=== PATIENT | female | born 1985 | race Caucasian/White ===

== ENCOUNTER 2016-08-17 12:34 | Emergency (ER) | payer OTHER ==
[2016-08-17 12:46] VITALS: BP 125/62; PULSE 78; RESP 18; TEMP 98; O2SAT 97
--- NOTE | 2016-08-17 14:52 | EDPHY ---
H & P Time Seen by Provider: 08/17/16 13:50 HPI/ROS: CHIEF COMPLAINT: Right ear pain HISTORY OF PRESENT ILLNESS: 31-year-old female presents emergency department complaining of right ear redness and tenderness. Patient had an ear piercing 6 months ago, for the last 3 months she has had increasing redness, intermittent drainage of serosanguineous fluid and tenderness. Patient denies fevers or chills, no pain inside of her ear, no difficulty hearing. Patient is not immunocompromised. Smoking Status: Never smoked Physical Exam: GEN: Awake, alert, oriented, no acute distress RESP: nl resp effort MSK: Normal appearing SKIN: ear piercing through antihelix of right ear with small area of surrounding mild erythema, swelling and tenderness, no fluctuance Constitutional: Initial Vital Signs Temperature (C) 36.6 C 08/17/16 12:45 Heart Rate 78 08/17/16 12:45 Respiratory Rate 18 08/17/16 12:45 Blood Pressure 125/62 H 08/17/16 12:45 O2 Sat (%) 97 08/17/16 12:45 O2 Delivery Mode Room Air Allergies/Adverse Reactions: cefprozil [From Cefzil] Allergy (Verified 06/19/13 07:27) Penicillins Allergy (Verified 06/19/13 07:27) Home Medications: Medication Instructions Recorded Topamax 06/19/13 Topiramate [Topamax] 100 mg PO BID #60 tab 06/19/13 MDM/Departure - Depart Disposition: Home, Routine, Self-Care Clinical Impression: piercing infection righ ear Condition: Good Instructions: Acute Wounds (ED) Additional Instructions: You need to have this earring removed. Warm compresses to ER after earring is removed. Return to Urgent Care or the emergency department for any worsening symptoms, new symptoms or concerns. Referrals: NONE *PRIMARY CARE P,. [Primary Care Provider] - As per Instructions
== END 2016-08-17 15:15 | disposition home or self-care (01) ==
LOC: CED 12:34
DX: L08.9 Local infection of the skin and subcutaneous tissue, unspecified (principal)
CPT/HCPCS: G0463-PO